=== PATIENT | female | born 1990 | race Caucasian/White ===

== ENCOUNTER 2021-05-19 14:57 | Emergency (ER) | payer BC, SELFPAY ==
[~2021-05-19] VITALS: Ht 162.6 cm; Wt 72.6 kg
[2021-05-19 15:10] VITALS: BP_SYST 119
--- NOTE | 2021-05-19 15:10 | NUR ---
Patient to ER TENT to gown for evaluation. Side rails up.
--- NOTE | 2021-05-19 15:16 | NUR ---
ER at bedside examining patient.
--- NOTE | 2021-05-19 15:20 | NUR ---
PT C/O COUGH AND CWP PAIN WITH MILD SOB.PT HAS NO ACUTUE RESP DISTRESS NOTED.NO SIGNIFICANT MED HX.
[2021-05-19 16:36] VITALS: BP_SYST 136
--- NOTE | 2021-05-19 16:40 | NUR ---
Patient given written and verbal discharge instructions and verbalizes understanding. ER MD discussed with patient the results and treatment provided. Patient in stable condition. ID arm band removed. Rx of XANAX given. Patient educated on pain management and to follow up with PMD. Pain Scale 0. Opportunity for questions provided and answered. Medication side effect fact sheet provided.
[2021-05-19] MEDS ORDERED: ALPR0.25 PO (16:41)
== END 2021-05-19 16:36 | disposition home or self-care (01) ==
LOC: SED 14:57
DX: F41.9 Anxiety disorder, unspecified (principal); Z79.899 Other long term (current) drug therapy; Z20.822 Contact with and (suspected) exposure to COVID-19
CPT/HCPCS: 36415; 71045; 93005; 99285